=== PATIENT | female | born 1950 | race Caucasian/White ===

== ENCOUNTER 2019-03-12 08:20 | Outpatient (CLI) | payer MEDICARE, SELFPAY ==
[2019-03-12 09:43] LABS: HCT 42.4 % (36.0-46.0); HGB 13.7 g/dL (12.0-15.5); Mean Corp. HGB Concentration 32.3 g/dL (32.0-36.0); Mean Corpuscular Hemoglobin 30.5 pg (27.0-33.0); Mean Corpuscular Volume 94.4 fL (80-95); Mean Platelet Volume 10.8 fL (8.0-11.0); Platelet Count 351 x1000/uL (130-400); RBC 4.49 m/cumm (4.00-5.20); RBC Distribution Width 13.4 % (11.7-14.6); White Blood Cell Count 5.14 k/cumm (4.4-10.8)
[2019-03-12 10:22] LABS: ALT 38 U/L (14-59); AST 19 U/L (15-37); Albumin 3.8 g/dL (3.4-5.0); Alkaline Phosphatase 97 U/L (46-116); BUN 12 mg/dL (7-18); Bilirubin, Total 0.4 mg/dL (0.2-1.0); CREATININE 0.82 mg/dL (0.55-1.02); Calculated LDL 155 mg/dL; Chloride 103 mmol/L (98-107); Cholesterol 276 mg/dL (<200); Glucose 93 mg/dL (74-106); HDL Cholesterol 106 mg/dL (40-60); Potassium 4.7 mmol/L (3.5-5.1); Sodium 142 mmol/L (136-145); Total Protein 7.5 g/dL (6.4-8.2); Triglyceride 78 mg/dL (<150)
== END 2019-03-12 08:40 ==
PROVIDERS: PCP Nurse Practitioner; Visit Provider Nurse Practitioner
DX: I10 Essential (primary) hypertension (principal); Z13.6 Encounter for screening for cardiovascular disorders
CPT/HCPCS: 36415; 80053; 80061; 85027

== ENCOUNTER 2019-03-19 00:40 | Outpatient (CLI) | payer MEDICARE, SELFPAY ==
--- NOTE | 2019-03-19 09:36 | DI.MAMMO_ITS ---
EXAM: MG MAMMO SCREENING CLINICAL HISTORY: screening, Z12.39. TECHNIQUE: Full field digital CC and MLO mammographic images were obtained with 3D tomosynthesis and utilizing computer aided detection (CAD). COMPARISON: . 2012 through 2016 FINDINGS: Breast Density - Category B - Scattered areas of fibroglandular density Masses/Architectural Distortion: None seen. Microcalcifications: No suspicious pleomorphic-type calcifications are seen. Skin Thickening/Nipple Retraction: None. Axilla: Unremarkable. IMPRESSION: 1. BI-RADS category 1, negative. No significant interval change with no specific features of maligna ncy noted. 2. Unless there is more urgent need, screening mammography is recommended, as per [employer] [place] [employer] guidelines. A negative radiographic report should not delay biopsy if a dominant or clinically suspicious mass is present. Up to ten percent of cancers are not identified on mammography. A negative report may reinforce clinical impression. Adenosis and dense breasts may obscure an underlying neoplasm. False positive reports average 6 to 10%. Patient will receive a letter notifying them of these results.
== END 2019-03-19 01:00 ==
PROVIDERS: PCP Nurse Practitioner; Visit Provider Nurse Practitioner
DX: Z12.31 Encounter for screening mammogram for malignant neoplasm of breast (principal)
CPT/HCPCS: 77063; 77067

== ENCOUNTER 2020-06-02 03:15 | Outpatient (CLI) | payer OTHER, SELFPAY ==
[2020-06-02 08:39] LABS: HCT 41.7 % (36.0-46.0); HGB 13.4 g/dL (11.2-15.7); MCH 31.4 pg (27.0-33.0); MCHC 32.1 % (32.0-36.0); MCV 97.7 fL (80-95); Platelet Count 341 10^3/uL (130-400); RBC 4.27 10^6/uL (3.93-5.22); RDW 13.2 % (11.7-14.6); RDW-SD 47.9 fL; WBC 5.42 10^3/uL (4.4-10.8)
[2020-06-02 08:59] LABS: Hemoglobin A1C 5.7 % (<5.7)
[2020-06-02 09:48] LABS: ALT 51 U/L (14-59); AST 30 U/L (15-37); Albumin 3.7 g/dL (3.4-5.0); Alkaline Phosphatase 99 U/L (46-116); Anion Gap 9.2 mmol/L (3-11); BUN 20 mg/dL (7-18); Bilirubin, Total 0.3 mg/dL (0.2-1.0); CO2 29.8 mmol/L (21.0-32.0); CREATININE 0.8 mg/dL (0.55-1.02); Calcium 8.9 mg/dL (8.5-10.1); Calculated LDL 117 mg/dL (<100); Chloride 102 mmol/L (98-107); Cholesterol 261 mg/dL (<200); Glucose 96 mg/dL (74-106); HDL Cholesterol 132 mg/dL (40-60); Potassium 4.5 mmol/L (3.5-5.1); Sodium 141 mmol/L (136-145); Total Protein 7.5 g/dL (6.4-8.2); Triglyceride 64 mg/dL (<150)
== END 2020-06-02 03:16 | disposition home or self-care (01) ==
PROVIDERS: PCP Nurse Practitioner; Visit Provider Nurse Practitioner
DX: F32.9 Major depressive disorder, single episode, unspecified (principal); I10 Essential (primary) hypertension; E66.9 Obesity, unspecified; Z13.1 Encounter for screening for diabetes mellitus
CPT/HCPCS: 36415; 80053; 80061; 85027; 83036

== ENCOUNTER 2020-06-10 04:15 | Outpatient (CLI) | payer OTHER, SELFPAY ==
--- NOTE | 2020-06-10 06:45 | DI.CT_ITS ---
EXAM: CT ABDOMEN PELVIS W CLINICAL HISTORY: bloating, discomfort, diarrhea, constipATION,ABD PAIN,R10.9,R14.0,R19.8 TECHNIQUE: Imaging Protocol: Axial computed tomography images with coronal and sagittal reformatted images were created and reviewed CONTRAST MATERIAL: Intravenous: Omnipaque 350 Contrast volume:100 mL Oral: Yes COMPARISON: CT ABD PELVIS WITH CONTRAST from 06/16/2008 FINDINGS: ABDOMEN: Lung Bases: Stable nodular scarring is seen along the left lower lobe laterally. It is unchanged com pared to the CT scan from 06/16/2008. No further follow-up is recommended. Liver: Normal density. There is a 1.2 cm area of decreased attenuation in the left lobe of the liver. (Series 5, image 141). Portal, Superior Mesenteric, and Splenic Veins: Unremarkable. Gallbladder and Biliary Tract: Status post cholecystectomy. No significant biliary ductal dilatation . Pancreas: Normal density, no abnormal calcifications or inflammatory process. Spleen: Normal. Adrenals: No masses seen. Kidneys: Normal size, contour and axis. No radiodense stones or obstructive uropathy. No masses seen. Abdominal Aorta: Abdominal portion non-dilated. Bowel: No obstruction or bowel wall thickening. Appendix is unremarkable. There are a few diverticula in the sigmoid colon but no evidence of acute diverticulitis. Peritoneal Cavity: No ascites, collection or mesenteric inflammatory response. No free air. Lymph Nodes: Within normal limits. Bones: Within normal limits for the patient's age. Soft Tissues: Unremarkable. PELVIS: Bladder: Symmetric distention, no gross wall thickening. Reproductive Organs: Unremarkable as visualized. Lymph Nodes: Within normal limits. Bones: Within normal limits for the patient's age. IMPRESSION: 1. There is a 1.2 cm lesion in the left lobe of the liver. The finding is nonspecific on this examin ation. An MRI of the liver without and with contrast is recommended to exclude a repeat hepatic mass . 2. Status post cholecystectomy. 3. Sigmoid diverticulosis without evidence of acute diverticulitis. 4. No acute abdominal or pelvic process. RADIATION DOSE DELIVERED: 1,116.16mGy.cm Total DLP DATA REPOSITORY: All CT scans at this facility are submitted to the National Radiology Data Registry (NRDR) Dose Index Registry (DIR) with the [employer] (ACR). RADIATION OPTIMIZATION: All CT scans at this facility use at least one of these dose optimization te chniques: automated exposure control; mA and/or kV adjustment per patient size (includes targeted exa ms where dose is matched to clinical indication); or iterative reconstruction.
[2020-06-10] MEDS: Breeza Beverage 473 ML BTL PO (08:03)
[2020-06-10] MEDS: Omnipaque 350 MG/ML 50 ML BTL IJ ×2 (10:03→10:05)
[2020-06-10] MEDS: Normal Saline - Diluent 50 ML VIAL IV (10:04)
== END 2020-06-10 04:35 ==
PROVIDERS: PCP Nurse Practitioner; Visit Provider Nurse Practitioner
DX: R10.9 Unspecified abdominal pain (principal); R14.0 Abdominal distension (gaseous); K59.00 Constipation, unspecified; R19.7 Diarrhea, unspecified; K76.89 Other specified diseases of liver; K57.30 Diverticulosis of large intestine without perforation or abscess without bleeding
CPT/HCPCS: 74177; Q9967

== ENCOUNTER 2020-06-23 01:26 | Outpatient (CLI) | payer OTHER, SELFPAY ==
[2020-06-23] MEDS: Gadoterate meglumine 20 ML VIAL IVP (08:47)
--- NOTE | 2020-06-23 09:15 | DI.MRI_ITS ---
EXAM: MR ABDOMEN WO/W CLINICAL HISTORY: Evaluate 1.2 cm lesion left liver lobe,ABD PAIN,R10.9,K76.9 TECHNIQUE: Multiplanar multisequence MRI was performed with both pre and post contrast infused seque nces. Contrast injected sequences were performed following IV injection of 20 cc of Dotarem. COMPARISON: CT ABD PELVIS WITH CONTRAST from 06/16/[address] ABDOMEN PELVIS W from 06/10/2020 FINDINGS: VISUALIZED LUNG BASES: No pleural effusions evident. There is no ascites evident. LIVER: Liver size is normal. In the left hepatic lobe there is a well-defined lesion corresponding t o what was described on recent CT scan, this measuring 9 millimeters wide by 7 millimeters AP by 8 mi llimeters cephalocaudal. This is well-defined and exhibits uniform high signal on T2 images. Follow ing IV contrast injection it slowly fills in and becomes isointense to the surrounding liver parenchy ma. This is most probably a benign hemangioma. No other significant focal hepatic findings identifi ed. BILIARY: Gallbladder surgically absent. The CBD is not dilated. PANCREAS: There is no evidence of pancreatic mass nor dilatation of the pancreatic duct. SPLEEN: Spleen is not enlarged and there are no intrasplenic lesions.Splenic and portal veins are pat ent ADRENALS: There are no significant adrenal masses. KIDNEYS: No solid renal masses. No hydronephrosis.No cysts evident. ABDOMINAL AORTA: Not enlarged and there is no significant para-aortic adenopathy. ANTERIOR ABDOMINAL WALL/GI: There is no evidence of significant anterior abdominal wall hernia in the field of view of this study.Is no evidence of obvious bowel obstruction. OSSEOUS: There are no lytic osseous lesions in the field of view of this study. IMPRESSION: 1. The solitary finding in the left hepatic lobe of the liver described on the recent CT scan exhibit s signal characteristic and enhancement pattern of a probable benign cavernous hemangioma measuring 9 x 7 x 8 millimeters. Recommend follow-up MRI in 6 months to ensure stability. 2. The gallbladder surgically absent. The biliary tree is not dilated. 3. No other significant MRI findings in the upper abdomen. DATA REPOSITORY:
== END 2020-06-23 01:46 ==
PROVIDERS: PCP Nurse Practitioner; Visit Provider Nurse Practitioner
DX: K76.89 Other specified diseases of liver (principal); R10.9 Unspecified abdominal pain
CPT/HCPCS: 74183

== ENCOUNTER 2021-01-03 01:44 | Outpatient (CLI) | payer MEDICARE, SELFPAY ==
--- NOTE | 2021-01-03 07:00 | DI.MRI_ITS ---
Exam(s) MR ABDOMEN WO/W EXAM: MR ABDOMEN WO/W CLINICAL HISTORY: f/u ? liver hemangioma,ll lesion,k76.9 TECHNIQUE: Multiplanar multisequence MRA of the Abdomen was performed. CONTRAST MATERIAL: IV Contrast: 20 mL of Dotarem contrast administered. COMPARISON: MR MR ABDOMEN WO/W from 06/23/2020 FINDINGS: Liver: There has been no change in size of the well-circumscribed lesion in the left lobe of the live r which shows progressive opacification following contrast administration. The finding is most consi stent with a hepatic hemangioma. No other hepatic masses are seen. Pancreas: Unremarkable. Gallbladder and Bile Ducts: Status post cholecystectomy. No significant biliary ductal dilatation. Adrenals: Unremarkable. Kidneys: Unremarkable. Spleen: Unremarkable. Aorta: Unremarkable. Soft Tissues: Unremarkable. Bone: Degenerative changes are seen in the lumbar spine. Lymph Nodes: Unremarkable. IMPRESSION: Stable left hepatic lesion most consistent with a hepatic hemangioma. A follow-up examination in 6-1 2 months is recommended to document stability. DATA REPOSITORY:
[2021-01-03 08:30] LABS: CREATININE 0.8 mg/dL (0.55-1.02)
[2021-01-03] MEDS: Gadoterate meglumine 20 ML VIAL IVP (08:50)
== END 2021-01-03 02:04 ==
PROVIDERS: PCP Nurse Practitioner; Visit Provider Nurse Practitioner
DX: K76.89 Other specified diseases of liver (principal); D18.03 Hemangioma of intra-abdominal structures; Z01.812 Encounter for preprocedural laboratory examination
CPT/HCPCS: 74183; 82565

== ENCOUNTER 2021-03-20 01:31 | Outpatient (CLI) | payer MEDICARE, SELFPAY ==
--- NOTE | 2021-03-20 07:00 | DI.MAMMO_ITS ---
Exam(s) MAMMO SCREENING EXAM: MAMMO SCREENING CLINICAL HISTORY: screening,z12.39. TECHNIQUE: Bilateral full field digital CC and MLO mammographic images were obtained with 3D tomosyn thesis and utilizing computer aided detection (CAD). COMPARISON: Prior mammograms dating back to 2012, the most recent being March 2019. FINDINGS: No new significant radiograph findings right breast. Left breast on MLO view there an asymmetric density located 3 cm in the nipple which require spot-com pression view. There are no malignant-appearing microcalcification groups in this region or elsewher e in either breast There is no significant architectural distortion nor skin thickening-retraction. IMPRESSION: No radiographic evidence of malignancy in the right breast. Asymmetric density-possible nodule in the left breast. Spot compression view and ultrasound recommen ded. BI-RADS Category 0 - Assessment Incomplete: Need additional imaging evaluation Breast Density - Category B - Scattered areas of fibroglandular density Breast density Category C or D implies that the patient has dense breast tissue. Dense breast tissue can make it harder to find cancer on a mammogram. Dense breast tissue is also associated with an incr eased risk of breast cancer. This information about the result of the mammogram report was provided to the patient to raise their awareness. Use this report when you speak with the patient about their risks for breast cancer, which includes their family history. At that time, you may recommend additional screening tests (Ultrasoun d or MRI) as these tests may add significant information. A negative radiographic report should not delay biopsy if a dominant or clinically suspicious mass is present. Up to ten percent of cancers are not identified on mammography. A negative report may reinforce clinical impression. Adenosis and dense breasts may obscure an underlying neoplasm. False positive reports average 6 to 10%. Patient will receive a letter notifying them of these results.
== END 2021-03-20 01:51 ==
PROVIDERS: PCP Nurse Practitioner; Visit Provider Nurse Practitioner
DX: Z12.31 Encounter for screening mammogram for malignant neoplasm of breast (principal); R92.8 Other abnormal and inconclusive findings on diagnostic imaging of breast
CPT/HCPCS: 77063; 77067

== ENCOUNTER 2021-03-30 02:18 | Outpatient (CLI) | payer MEDICARE, SELFPAY ==
--- NOTE | 2021-03-30 10:50 | DI.MAMMO_ITS ---
Exam(s) MAMMO SCREEN CALL BACK UNI EXAM: MAMMO SCREEN CALL BACK UNI CLINICAL HISTORY: ASYMMETRIC DENSITY LEFT BREAST TECHNIQUE: Spot compression views and tomographic imaging were performed. COMPARISON: 2012 through the recent exam of 20 March 2021. FINDINGS: No suspicious masses or suspicious microcalcifications are seen. No persistent abnormality is seen on the additional views performed. The findings are consistent wit h overlying fibroglandular tissue. There has been no significant change from prior exams. IMPRESSION: BI-RADS Category 1, Negative Yearly screening mammography is recommended. Breast Density - Category B, scattered fibroglandular densities.
== END 2021-03-30 02:38 ==
PROVIDERS: PCP Nurse Practitioner; Visit Provider Nurse Practitioner
DX: Z12.31 Encounter for screening mammogram for malignant neoplasm of breast (principal)
CPT/HCPCS: 77063; 77067

== ENCOUNTER 2021-05-30 01:51 | Outpatient (CLI) | payer MEDICARE, SELFPAY ==
--- NOTE | 2021-05-30 07:30 | DI.DEXA_ITS ---
Exam(s) XR DEXA BONE DENSITY W/WO ADELINE EXAM: XR DEXA BONE DENSITY W/WO ADELINE CLINICAL HISTORY: SCREENING FOR OSTEOPOROSIS IN POSTMENOPAUSAL WOMAN,Z78.0 TECHNIQUE: COMPARISON: No exams were available for comparison FINDINGS: DEXA scan was performed according to the usual protocol. Please see the accompanying data sheets. Findings for left hip scanning are T-score -0.3 with left femoral neck T-score -3.2. Prior examinati on of January 25 showed left hip T-score -0.5. Lumbar spine scanning shows T-score -2.3, prior examination of 25/11 showed lumbar T-score -1.9. Left forearm scanning shows T-score -0.6. IMPRESSION: The findings are consistent with osteoporosis according to the WHO criteria. The lateral vertebral s canogram shows no evidence of vertebral compression fracture. RADIATION DOSE DELIVERED: Total DLP
== END 2021-05-30 02:11 ==
PROVIDERS: PCP Nurse Practitioner; Visit Provider Nurse Practitioner
DX: M81.0 Age-related osteoporosis without current pathological fracture (principal); Z78.0 Asymptomatic menopausal state
CPT/HCPCS: 77080

== ENCOUNTER 2021-07-12 08:24 | Outpatient (CLI) | payer MEDICARE, SELFPAY | END 2021-07-12 08:25 | disposition home or self-care (01) | LOC: DI.KIM 08:39 | PROVIDERS: PCP Nurse Practitioner; Visit Provider Nurse Practitioner | DX: R69 Illness, unspecified (principal) | CPT/HCPCS: 93010 ==

== ENCOUNTER 2021-07-17 02:49 | Outpatient (CLI) | payer MEDICARE, SELFPAY ==
[2021-07-17 08:42] LABS: ALT 46 U/L (14-59); AST 27 U/L (15-37); Albumin 3.5 g/dL (3.4-5.0); Alkaline Phosphatase 106 U/L (46-116); BUN 15 mg/dL (7-18); Bilirubin, Total 0.3 mg/dL (0.2-1.0); CREATININE 0.7 mg/dL (0.55-1.02); Calculated LDL 136 mg/dL (<100); Cholesterol 264 mg/dL (<200); Glucose 85 mg/dL (74-106); HDL Cholesterol 98 mg/dL (40-60); Total Protein 7.1 g/dL (6.4-8.2); Triglyceride 153 mg/dL (<150)
[2021-07-17 09:03] LABS: Anion Gap 7.3 mmol/L (3-11); CO2 29.7 mmol/L (21.0-32.0); Chloride 105 mmol/L (98-107); Potassium 4.6 mmol/L (3.5-5.1); Sodium 142 mmol/L (136-145)
== END 2021-07-17 02:50 | disposition home or self-care (01) ==
LOC: LBO 02:49
PROVIDERS: PCP Nurse Practitioner; Visit Provider Nurse Practitioner
DX: K76.89 Other specified diseases of liver (principal); E78.79 Other disorders of bile acid and cholesterol metabolism
CPT/HCPCS: 36415; 80053; 80061

== ENCOUNTER → 2021-12-12 00:50 | Outpatient (CLI) | payer MEDICARE, SELFPAY ==
--- NOTE | 2021-12-12 07:15 | DI.MRI_ITS ---
Exam(s) MR ABDOMEN WO/W EXAM: MR ABDOMEN WO/W CLINICAL HISTORY: f/u hepatic lesion c/w hemangioma,R93.5,K76.9, LIVER LESION TECHNIQUE: Multiplanar multisequence MRI of the Abdomen was performed. CONTRAST MATERIAL: IV Contrast: 15 mL of Dotarem contrast administered. COMPARISON: MR MR ABDOMEN WO/W from 01/03/2021 FINDINGS: Liver: There has been no change in appearance of the 1.3 cm mass in the left lobe of the liver. It i s hypoechoic on the T1 weighted images and shows progressive enhancement following contrast administr ation. It remains consistent with a hepatic hemangioma. No new hepatic lesions are seen. Pancreas: Unremarkable. Gallbladder and Bile Ducts: Status post cholecystectomy. No significant biliary ductal dilatation. Adrenals: Unremarkable. Kidneys: Unremarkable. Spleen: Unremarkable. Bowel: Unremarkable. Aorta: Unremarkable. Soft Tissues: Unremarkable. Bone: Unremarkable. Lymph Nodes: Unremarkable. IMPRESSION: Stable 1.3 cm hepatic hemangioma. DATA REPOSITORY:
[2021-12-12 08:57] LABS: CREATININE 0.8 mg/dL (0.55-1.02); Estimated GFR 79.71 (mL/min/1.73m2)
== END ==
PROVIDERS: PCP Nurse Practitioner; Visit Provider Nurse Practitioner
DX: K76.9 Liver disease, unspecified (principal); R93.5 Abnormal findings on diagnostic imaging of other abdominal regions, including retroperitoneum
CPT/HCPCS: 74183; 82565

== ENCOUNTER 2022-08-01 01:12 | Outpatient (CLI) | payer MEDICARE, SELFPAY ==
--- NOTE | 2022-08-01 07:00 | DI.MAMMO_ITS ---
Exam(s) MAMMO SCREENING EXAM: MAMMO SCREENING CLINICAL HISTORY: screening,z12.39 TECHNIQUE: Mammograms were interpreted according to the usual protocol including computer analysis w [employer] CAD system, tomosynthesis and C-view imaging. COMPARISON: 2012 - 2020 FINDINGS: The breasts are composed of scattered fibroglandular densities, Breast Density category B. No suspicious masses or suspicious microcalcifications are seen. No skin thickening or abnormal axillary lymph nodes are seen. There has been no significant change from prior exams. IMPRESSION: BI-RADS Category 1, Negative mammogram Yearly screening mammography is recommended. Breast Density - Category B, scattered fibroglandular densities. A negative radiographic report should not delay biopsy if a dominant or clinically suspicious mass is present. Up to ten percent of cancers are not identified on mammography. A negative report may reinforce clinical impression. Adenosis and dense breasts may obscure an underlying neoplasm. False positive reports average 6 to 10%. Patient will receive a letter notifying them of these results.
== END 2022-08-01 01:32 ==
PROVIDERS: PCP Nurse Practitioner; Visit Provider Nurse Practitioner
DX: Z12.31 Encounter for screening mammogram for malignant neoplasm of breast (principal)
CPT/HCPCS: 77063; 77067

== ENCOUNTER → 2022-09-20 14:32 | Outpatient (BNVA) | payer MEDICARE, SELFPAY | PROVIDERS: PCP Nurse Practitioner; Referring Provider Nurse Practitioner; Visit Provider Physical Therapy Assistant | DX: Z12.11 Encounter for screening for malignant neoplasm of colon (principal); Z80.0 Family history of malignant neoplasm of digestive organs ==

== ENCOUNTER 2022-09-27 09:36 | Day surgery (SDC) | payer MEDICARE, SELFPAY ==
--- NOTE | 2022-09-26 21:03 | W.PM.DSUDISC ---
Date of service: 09/27/22 Time of Service: 12:27 Discharge Plan Disposition Patient Disposition: Home Condition: Good Discharge Details Reason For Visit: Screening colonoscopy Attending Provider: Jack Wolf Primary Care Provider: Lissa Coon Home Meds and New Rx's Prescriptions: Continued cholecalciferol (vitamin D3) 50 mcg (2,000 unit) capsule 50 mcg PO DAILY flu vacc quad 2017-(6mos up) 60 mcg (15 mcg x 4)/0.5 mL suspension 0.5 ml IM ONCE Qty: 0.5 0RF flu vac 2017 [id number](PF) 45 mcg (15 mcg x 3)/0.5 mL syringe 45 mcg IM ONCE Qty: 0.5 0RF loratadine [Allergy Relief (loratadine)] 10 mg tablet 10 mg PO DAILY Qty: 90 3RF ibuprofen [Advil] 200 MG tablet 200 mg PO PRN fluoxetine 40 mg capsule 40 mg PO DAILY Qty: 90 3RF omeprazole 20 mg capsule,delayed release(DR/EC) 20 mg PO DAILY Qty: 90 3RF Rx Instructions: dx: heartburn Discontinued bisacodyl [Dulcolax (bisacodyl)] 5 mg tablet,delayed release (DR/EC) 5 mg PO ONCE Qty: 4 0RF Rx Instructions: Take per colonoscopy instructions provided by ordering providers office polyethylene glycol 3350 17 gram/dose powder 17 g PO ONCE Qty: 238 0RF Rx Instructions: Take per colonoscopy instructions provided by ordering providers office Discharge Instructions Instructions: Colorectal Polyps (GEN) Additional Instructions: Bev, I was able to complete your colonoscopy today without any difficulty. The quality of your prep was excellent. I did find a single polyp around 55 cm from your anus. It was quite small. I removed it completely. I will be in touch when I have the results of the polypectomy report for my final recommendations. 1. If tolerated, consume a soft, low fiber diet for 1-2 days. 2. Do not drive, drink alcohol, operate machinery, make critical decisions, or do activities that require coordination or balance for 24 hours. 3. Because air was put into your colon during the procedure, expelling air from your rectum (passing gas or farting) is normal. 4. You may not have a bowel movement for 1-3 days because of the colonoscopy prep. This is normal. 5. Go directly to the emergency room if you notice any of the following: Develop chills (warm to touch), or if you have a thermometer and your temperature is above 101 Difficulty breathing or difficultly swallowing Persistent vomiting Severe abdominal pain, other than gas cramps Severe chest pain Black, tarry stools Any bleeding ? exceeding one tablespoon 6. Call your physician if the site where your intravenous was started becomes red, swollen, painful, and warm to touch. 7. Your physician has reviewed your pre-procedure medications. Please continue to take those medications as previously ordered. You will be given specific information/education regarding any changes to your medications before leaving. Activity:: Activity as Tolerated Diet:: As Tolerated Discharge Orders Discharge Orders: Discharge Order (Routine); Ordered 09/26/22 Ordered By: Jack Wolf DS: Diagnosis Discharge Diagnosis (1) Screen for colon cancer: Status: Acute Asessment and Plan: Follow-up on polypectomy report
--- NOTE | 2022-09-26 21:05 | W.COLOREPORT ---
Date of service: 09/27/22 Time of Service: 12:25 Colonoscopy Report Date of procedure: 09/27/22 Pre-op diagnosis general: Screening colonscopy Post-op diagnosis procedure note: other (Colon polyp) Procedure: Colonoscopy with polypectomy Surgeon: Jack Wolf Anesthesia Type: General:No Airway Estimated blood loss (mL): 5 Pathology: other (Polyp at 55 cm) Complications: None Disposition: same day Indications: Heavenly is a 72 year old woman who needs a screening colonscopy Prep: Miralax/Dulcolax Procedure Start Time: 11:55 Procedure End Time: 12:16 Retraction Time: 14 Findings: 0.25 cm polyp at 55 cm Procedure Description: After the induction of monitored anesthetic care, and with the patient in left lateral decubitus position, I began by performing an external anorectal exam.? Perineum and skin were normal, as was the anal verge.? There was no evidence of external hemorrhoids.? Next, I performed a digital rectal exam.? I did not appreciate any abnormal findings.? Next, I advanced a colonoscope into the rectal vault.? I performed retroflexion.? This appeared normal.? Using insufflation, I then advanced the colonoscope beyond the rectal folds and into the sigmoid colon before advancing towards the cecum.? The quality of the prep was excellent.? The scope was noted to be in the cecum by identification of the ileocecal valve and appendiceal orifice.? I then began withdrawing the colonoscope using repeated irrigation as necessary for full evaluation of the colonic mucosa. Around 55 cm from the anal verge I identified a 0.25 cm polyp. ?It appeared sessile in character. ?I was able to remove this with a cold forcep polypectomy. ?I examined the site, and there was minimal bleeding. ?Once this was completed, I continued to withdraw the scope and examine the remainder of the colonic mucosa.?Once the scope was withdrawn to the level of the rectum, great care was taken to examine portions of the rectal folds.? Finally, the scope was withdrawn and the patient was brought to the same-day surgery recovery unit as the anesthetic wore off. ?The findings and instructions were shared with the patient prior to discharge.
[2022-09-27 09:52] VITALS: BP 120/79; PULSE 59; RESP 18; TEMP 36.6; O2SAT 97
[2022-09-27] MEDS: Lactated Ringers 1,000 ML 80 ML IV (10:09)
--- NOTE | 2022-09-27 10:35 | W.ANESPRE ---
General Info Date of Service Date Performed: 09/27/22 Height: 5 ft 3.5 in Weight: 90.2 kg Body Mass Index (BMI): 34.7 Surgical Procedure: Operation Date: 09/27/22 11:05 Proposed Procedure Side Surgeon luz Wolf MD Meds Allergies and Home Medications Allergies Allergy/AdvReac Type Severity Reaction Status Date / Time Penicillins Allergy Severe LIFE Verified 09/27/22 10:00 THREATENING AT EARLY AGE imipramine AdvReac Unknown Rash Verified 09/27/22 10:00 Home Medication Medication Instructions Recorded ibuprofen 200 mg tablet (Advil) 200 mg PO PRN 07/17/12 cholecalciferol (vitamin D3) 50 50 mcg PO DAILY 07/12/21 mcg (2,000 unit) capsule fluoxetine 40 mg capsule 40 mg PO DAILY #90 caps 04/30/22 omeprazole 20 mg capsule,delayed 20 mg PO DAILY #90 caps 04/30/22 release loratadine 10 mg tablet (Allergy 10 mg PO DAILY #90 tabs 07/23/22 Relief (loratadine)) Current Visit Medications: Current Medications Generic Name Dose Route Start Last Admin Trade Name Freq PRN Reason Stop Dose Admin Hyoscyamine Sulfate 0.125 mg 09/26/22 21:20 Hyoscyamine 0.125 Mg Sl/Oral/Chew SL 10/26/22 21:19 DIRECTED PRN Ringer's Solution 1,000 mls @ 80 mls/hr 09/27/22 06:00 09/27/22 10:09 IV 09/27/22 23:59 80 mls/hr INFUSION KATALINA Administration IV Miscellaneous Supplies 1 each 09/27/22 06:00 Iv Access IV 09/27/22 23:59 DIRECTED KATALINA Ondansetron HCl 4 mg 09/26/22 21:20 Ondansetron 4 Mg/2 Ml Vial IVP 10/26/22 21:19 Q4H PRN PRN Nausea / Vomiting Sodium Chloride 0 ml 09/27/22 06:00 Normal Saline Flush 10 Ml Syr IV 09/27/22 23:59 PRN PRN Sodium Chloride 0 ml 09/27/22 06:00 Normal Saline 10 Ml Vial IJ 09/27/22 23:59 DIRECTED PRN Sterile Water 0 ml 09/27/22 06:00 Water,Injection,Sterile 10 Ml Vial IJ 09/27/22 23:59 DIRECTED PRN [facility] Active Problems Active Problems: Problem Status Onset Code Screen for colon cancer Z12.11 Cataract of right eye H26.9 Pre-procedure lab exam Z01.812 Liver lesion, left lobe K76.9 Alternating constipation and diarrhea R19.8 Bloating R14.0 Abdominal pain R10.9 Grief F43.21 Obesity E66.9 Depressive disorder 09/23/12 F32.9 Alcohol abuse F10.10 Screening for cholesterol level Z13.220 Elevated blood pressure reading in office with diagnosis of hypertension I10 Medical History Medical History Depression Obesity Osteoarthritis Finger Right wrist fracture, closed, 2004 Surgical History Surgical History B/L ovaries removed, 2008 cysts Cataract, left (03/17/15) Colonoscopy - MAC (08/30/17) EGD - MAC (08/30/17) Tonsillectomy childhood Tobacco Smoking/Tobacco Use Status: Former Tobacco Use Alcohol Alcohol Intake: current Alcohol intake frequency: 3 or more drinks per day Alcohol type: wine Substance Use Substance use: Never Substance use type: does not use Vital Signs and Lab Results Vital Signs Most Recent Vital Signs in EMR: Most Recent Vital Signs Temp Pulse Resp BP Pulse Ox 36.6 C 59 L 18 120/79 97 09/27/22 09:52 09/27/22 09:52 09/27/22 09:52 09/27/22 09:52 09/27/22 09:52 Lab Results Blood Type / Crossmatch: No Data to Display Complete Blood Count: No Data to Display Complete Metabolic Panel: No Data to Display Liver Function Panel: No Data to Display Coagulation Panel: No Data to Display Cardiac Panel: No Data to Display Arterial Blood Gas: No Data to Display Venous Blood Gas: No Data to Display Pancreas Panel: No Data to Display Thyroid Panel: No Data to Display Infectious Disease: No Data to Display Blood Cultures: No Data to Display Toxicology Panel: No Data to Display Anesthesia Assessment and Plan Anesthesia History Personal History: No History of Anesthesia Complications Family History: No Family History of Anesthesia Complications Exercise Tolerance Exercise Tolerance: Metabolic Equivalents>4 Pertinent Negatives Pertinent Negatives: No Symptoms of GERD, No Major Cardiovascular Symptoms or Complaints, No Major Pulmonary Symptoms or Complaints and No History of CVA/TIA Cardiac & Pulmonary Exam Cardiac Exam: Normal S1/S2 Heart Sounds Pulmonary Exam: Clear Bilateral Breath Sounds Implantable Cardiac Device Does patient have a Pacemaker or an ICD?: No Airway Exam Known Difficult Airway: No Mallampati Class: 2 Mouth Opening: Normal (> 3cm) Thyromental Distance: Greater than 3 cm Neck Range of Motion: Full ROM Neck Circumference: Normal Teeth Condition: Normal Dentition and Loose or Chipped (front upper incisors) ASA Classification ASA Score: ASA 2 Emergency Case?: No NPO Status NPO Status: NPO Clears >2 hours, Solids >8 hours Anesthesia Plan Resuscitation Status: Full Code Anesthesia Technique: General Anesthesia Airway Planned: Natural Airway Monitors Used: Standard Monitors
[2022-09-27 10:48] VITALS: BMI 34.7
--- NOTE | 2022-09-27 12:15 | BOWEL_PTH ---
PATIENT: Bev Peñaloza LOC: [facility] U#:[id number] AGE/SX: 72/F ROOM: RE09/27/[address]: Jack Wolf MD : 1950 BED: DIS: 09/27/2022 SPEC #: [id number] RECD: 09/27/22 12:57 STATUS: ALEXEI REQ #: [id number] AVRIL: 09/27/22 12:[address]: Jack Wolf DEPT: Surgical Specimen RECD BY: Jaja Corral ENTERED: 09/27/22 12:57 SP TYPE: Bowel OTHR DR: Lissa Coon APRN Tissues: 1 - BIOPSY BOWEL Procedures: GROSS AND MICRO LEVEL 4 Comments: [id number]
[2022-09-27 12:40] VITALS: BP 105/71; PULSE 66; RESP 15; TEMP 36.3; O2SAT 97
--- NOTE | 2022-09-27 12:55 | W.ANESPOSTOP ---
Postoperative Evaluation Date, Time and Location Date Performed: 09/27/22 Time Performed: 12:44 Patient Location: Day Surgery Unit Vital Signs Most Recent Imported Vital Signs: Most Recent Vital Signs Temp Pulse Resp BP Pulse Ox 36.3 C L 66 15 105/71 97 09/27/22 12:40 09/27/22 12:40 09/27/22 12:40 09/27/22 12:40 09/27/22 12:40 Pain Score Most Recent Pain Score: Most Recent Pain Score Pain Level 0 09/27/22 12:40 Assessment Mental Status: Awake (Alert & Oriented to Patient Baseline) Airway and Respiratory Function: Patent airway with normal (patient baseline) respiratory exam Cardiovascular Function: Hemodynamically Stable Hydration Status: Adequately Hydrated Nausea & Vomiting: No Nausea or Vomiting Pain: Pt. Denies Any Pain Peripheral Nerve Block: Patient did not receive a nerve block
[2022-09-27 13:00] VITALS: BP 113/67; PULSE 55; RESP 16; TEMP 36.3; O2SAT 99
== END 2022-09-27 13:14 | disposition home or self-care (01) ==
PROVIDERS: PCP Nurse Practitioner; Visit Provider Surgery
PROC: 0DJD8ZZ Inspection of Lower Intestinal Tract, Via Natural or Artificial Opening Endoscopic (ICD-10-PCS; CPT 45378; principal; 2022-09-27 11:00)
DX: Z12.11 Encounter for screening for malignant neoplasm of colon (principal); D12.5 Benign neoplasm of sigmoid colon
CPT/HCPCS: 45380; 88305; J2001

== ENCOUNTER 2023-08-01 08:36 | Outpatient (CLI) | payer MEDICARE, SELFPAY ==
[2023-08-01 08:32] LABS: Abs Immature Grans 0.01 10^3/uL (0.0-0.06); Absolute Basophil Count 0.05 10^3/uL (0.0-0.2); Absolute Eosinophil Count 0.11 10^3/uL (0.0-0.7); Absolute Lymphocyte Count 1.86 10^3/uL (1.2-3.4); Absolute Neutrophil Count 2.35 10^3/uL (1.2-6.7); Basophils % 1.1; Eosinophils % 2.4; HCT 43.4 % (36.0-46.0); HGB 14.5 g/dL (11.2-15.7); Immature Grans % 0.2; Lymphocytes % 39.7; MCH 32.7 pg (27.0-33.0); MCHC 33.4 % (32.0-36.0); MCV 98 fL (80-95); MPV 9.9 fL (8.0-11.0); Monocytes % 6.4; Neutrophils % 50.2; Platelet Count 355 10^3/uL (130-400); RBC 4.44 10^6/uL (3.93-5.22); RDW 13.2 % (11.7-14.6); RDW-SD 47.8 fL; WBC 4.68 10^3/uL (4.4-10.8)
[2023-08-01 08:48] LABS: ALT 35 U/L (14-59); AST 24 U/L (15-37); Albumin 3.6 g/dL (3.4-5.0); Alkaline Phosphatase 93 U/L (46-116); Anion Gap 9.6 mmol/L (3-11); BUN 11 mg/dL (7-18); Bilirubin, Total 0.4 mg/dL (0.2-1.0); CO2 28.4 mmol/L (21.0-32.0); CREATININE 0.8 mg/dL (0.55-1.02); Calcium 8.8 mg/dL (8.5-10.1); Chloride 102 mmol/L (98-107); Estimated GFR 78.72 (mL/min/1.73m2); Glucose 97 mg/dL (74-106); Potassium 4.6 mmol/L (3.5-5.1); Sodium 140 mmol/L (136-145); Total Protein 7.7 g/dL (6.4-8.2)
[2023-08-01 20:02] LABS: Calculated LDL 142 mg/dL (<100); Cholesterol 273 mg/dL (<200); HDL Cholesterol 110 mg/dL (40-60); Triglyceride 106 mg/dL (<150)
== END 2023-08-01 08:37 | disposition home or self-care (01) ==
LOC: LBO 08:36
PROVIDERS: PCP Nurse Practitioner; Visit Provider Nurse Practitioner
DX: E78.5 Hyperlipidemia, unspecified (principal)
CPT/HCPCS: 36415; 80053; 80061; 85025

== ENCOUNTER → 2023-08-06 02:51 | Outpatient (CLI) | payer MEDICARE, SELFPAY ==
--- NOTE | 2023-08-06 12:45 | DI.MAMMO_ITS ---
Exam(s) MAMMO SCREENING EXAM: MAMMO SCREENING CLINICAL HISTORY: screening,Z12.39 TECHNIQUE: Mammograms were interpreted according to the usual protocol including computer analysis w [employer] CAD system, tomosynthesis and C-view imaging. COMPARISON: 2015 through 2022 FINDINGS: The breasts are composed of scattered fibroglandular densities, Breast Density category B. No suspicious masses or suspicious microcalcifications are seen. No skin thickening or abnormal axillary lymph nodes are seen. There has been no significant change from prior exams. IMPRESSION: BI-RADS Category 1, Negative mammogram Yearly screening mammography is recommended. Breast Density - Category B, scattered fibroglandular densities. A negative radiographic report should not delay biopsy if a dominant or clinically suspicious mass is present. Up to ten percent of cancers are not identified on mammography. A negative report may reinforce clinical impression. Adenosis and dense breasts may obscure an underlying neoplasm. False positive reports average 6 to 10%. Patient will receive a letter notifying them of these results.
== END ==
PROVIDERS: PCP Nurse Practitioner; Visit Provider Nurse Practitioner
DX: Z12.31 Encounter for screening mammogram for malignant neoplasm of breast (principal)
CPT/HCPCS: 77063; 77067

== ENCOUNTER 2023-10-02 11:46 | Outpatient (REF) | payer MEDICARE, SELFPAY ==
[2023-10-02 15:33] LABS: Abs Immature Grans 0.02 10^3/uL (0.0-0.06); Absolute Basophil Count 0.03 10^3/uL (0.0-0.2); Absolute Lymphocyte Count 0.66 10^3/uL (1.2-3.4); Absolute Monocyte Count 0.46 10^3/uL (0.1-0.8); Absolute Neutrophil Count 3.31 10^3/uL (1.2-6.7); Basophils % 0.7 %; HGB 14.5 g/dL (11.2-15.7); Immature Grans % 0.4 %; Lymphocytes % 14.7 %; MCH 33.3 pg (27.0-33.0); MCHC 33.7 % (32.0-36.0); MCV 99 fL (80-95); MPV 10.6 fL (8.0-11.0); Monocytes % 10.3 %; Neutrophils % 73.9 %; Platelet Count 244 10^3/uL (130-400); RBC 4.35 10^6/uL (3.93-5.22); RDW-SD 50.5 fL; WBC 4.48 10^3/uL (4.4-10.8)
[2023-10-02 15:40] LABS: Anion Gap 12.3 mmol/L (3-11); BUN 12 mg/dL (7-18); CO2 25.7 mmol/L (21.0-32.0); CREATININE 0.9 mg/dL (0.55-1.02); Calcium 8.8 mg/dL (8.5-10.1); Chloride 97 mmol/L (98-107); Estimated GFR 68.35 (mL/min/1.73m2); Glucose 110 mg/dL (74-106); Potassium 4.1 mmol/L (3.5-5.1); Sodium 135 mmol/L (136-145)
== END 2023-10-02 11:47 | disposition home or self-care (01) ==
LOC: LBN 11:46
PROVIDERS: PCP Nurse Practitioner; Visit Provider Physician Assistant Medical
DX: B34.9 Viral infection, unspecified (principal)
CPT/HCPCS: 80048; 85025

== ENCOUNTER 2024-08-10 00:47 | Outpatient (CLI) | payer MEDICARE, SELFPAY ==
--- NOTE | 2024-08-10 07:30 | DI.MAMMO_ITS ---
Exam(s) MAMMO SCREENING EXAM: MAMMO SCREENING CLINICAL HISTORY: screening, Z12.39. TECHNIQUE: Bilateral full field digital CC and MLO mammographic images were obtained with 3D tomosyn thesis and utilizing computer aided detection (CAD). COMPARISON: Prior mammograms were reviewed. FINDINGS: There has been no significant change in the appearance and distribution of the fibroglandular tissue. There are no new spiculated masses nor malignant appearing microcalcification groups. There is no significant architectural distortion nor skin thickening-retraction. IMPRESSION: No radiographic evidence of malignancy. BI-RADS Category 1 - Negative Breast Density - Category B - There are scattered areas of fibroglandular density. Breast density Category C or D implies that the patient has dense breast tissue. Dense breast tissue can make it harder to find cancer on a mammogram. Dense breast tissue is also associated with an incr eased risk of breast cancer. This information about the result of the mammogram report was provided to the patient to raise their awareness. Use this report when you speak with the patient about their risks for breast cancer, which includes their family history. At that time, you may recommend additional screening tests (Ultrasoun d or MRI) as these tests may add significant information. A negative radiographic report should not delay biopsy if a dominant or clinically suspicious mass is present. Up to ten percent of cancers are not identified on mammography. A negative report may reinforce clinical impression. Adenosis and dense breasts may obscure an underlying neoplasm. False positive reports average 6 to 10%. Patient will receive a letter notifying them of these results.
== END 2024-08-10 01:07 ==
LOC: DI 00:47
PROVIDERS: PCP Nurse Practitioner; Visit Provider Nurse Practitioner
DX: Z12.31 Encounter for screening mammogram for malignant neoplasm of breast (principal); R92.323 Mammographic fibroglandular density, bilateral breasts
CPT/HCPCS: 77063; 77067